=== PATIENT | male | born 1975 | race Caucasian/White ===

== ENCOUNTER 2019-04-22 10:10 | Emergency (ER) | payer SELFPAY ==
[~2019-04-22] VITALS: Ht 175.3 cm; Wt 90.0 kg
[~2019-04-22 10:10] MED LIST: CIPR-193 PO; ONDA4TAB8 PO
[2019-04-22 10:16] VITALS: Ht 175.3 cm; Wt 90.0 kg
--- NOTE | 2019-04-22 11:09 | ERD ---
ER Documentation Chief Complaint Chief Complaint DIARRHEA X 3 DAYS HPI Patient is a 43 years old male with PMHx of Hepatitis post treatment presenting to the ED for abdominal pain, fever, chills, headache, nausea, NBNB emesis, watery diarrhea x 3 days. Patient reports eating seafood buffet prior to onset of symptoms. Patient reports 9 bowel movements per day that is yellow in color with foul odor. ROS All systems reviewed and are negative except as per history of present illness. Medications Home Meds Active Scripts Ondansetron Hcl* (Zofran*) 4 Mg Tablet, 4 MG PO Q8H PRN for NAUSEA AND/OR VOMITING, #30 TAB Prov:MICHELLE NUÑEZ PA-C 04/22/19 Ciprofloxacin Hcl* (Ciprofloxacin Hcl*) 250 Mg Tablet, 250 MG PO BID for 3 Days, #6 TAB Prov:MICHELLE NUÑEZ PA-C 04/22/19 Allergies Allergies: Coded Allergies: No Known Allergy (Unverified , 04/22/19) PMhx/Soc History of Surgery: No Anesthesia Reaction: No Hx Neurological Disorder: No Hx Respiratory Disorders: No Hx Cardiac Disorders: No Hx Psychiatric Problems: No Hx Miscellaneous Medical Probl: No FmHx Family History: No diabetes, No coronary disease, No other Physical Exam Vitals Vital Signs Date Temp Pulse Resp B/P (MAP) Pulse Ox O2 O2 Flow FiO2 Time Delivery Rate 04/22/19 98.2 79 18 137/78 99 Room Air 13:30 (97) 04/22/19 98.1 96 18 153/92 99 10:16 (112) Physical Exam Const: No acute distress Head: Atraumatic Resp: Clear to auscultation bilaterally Cardio: Regular rate and rhythm, no murmurs Abd: Soft, distended. Hyperactive bowel sounds. Diffuse abdominal tenderness. Negative Valdes sign, Rovsing sign, Marl[place] sign, Decker Crane sign. Back: No midline or flank tenderness. Negative CVAT. Psych: Normal Mood and Affect Result Diagram: 04/22/19 1128 04/22/19 1210 Results 24 hrs Laboratory Tests Test 04/22/19 11:28 04/22/19 12:10 White Blood Count 12.0 10^3/ul Red Blood Count 5.52 10^6/ul Hemoglobin 16.1 g/dl Hematocrit 46.8 % Mean Corpuscular Volume 84.8 fl Mean Corpuscular Hemoglobin 29.2 pg Mean Corpuscular Hemoglobin Concent 34.4 g/dl Red Cell Distribution Width 12.8 % Platelet Count 291 10^3/UL Mean Platelet Volume 10.7 fl Immature Granulocytes % 0.800 % Neutrophils % 79.0 % Lymphocytes % 9.3 % Monocytes % 10.4 % Eosinophils % 0.1 % Basophils % 0.4 % Nucleated Red Blood Cells % 0.0 /100WBC Immature Granulocytes # 0.090 10^3/ul Neutrophils # 9.5 10^3/ul Lymphocytes # 1.1 10^3/ul Monocytes # 1.3 10^3/ul Eosinophils # 0.0 10^3/ul Basophils # 0.1 10^3/ul Nucleated Red Blood Cells # 0.0 10^3/ul Sodium Level 137 mmol/L Potassium Level 3.4 mmol/L Chloride Level 101 mmol/L Carbon Dioxide Level 27 mmol/L Anion Gap 9 Blood Urea Nitrogen 12 mg/dl Creatinine 0.82 mg/dl Est Glomerular Filtrat Rate mL/min > 60 mL/min Glucose Level 188 mg/dl Calcium Level 8.8 mg/dl Total Bilirubin 0.6 mg/dl Direct Bilirubin 0.00 mg/dl Indirect Bilirubin 0.6 mg/dl Aspartate Amino Transf (AST/SGOT) 32 IU/L Alanine Aminotransferase (ALT/SGPT) 35 IU/L Alkaline Phosphatase 67 IU/L Total Protein 6.9 g/dl Albumin 3.8 g/dl Globulin 3.10 g/dl Albumin/Globulin Ratio 1.22 Current Medications Medications Dose Sig/Nikki Start Time Status Last (Trade) Ordered Route PRN Stop Time Admin Dose Reason Admin Sodium 1,000 ml @ Q1H ONCE 04/22/19 DC 04/22/19 Chloride 1,000 mls/hr IV 11:30 04/22/19 11:28 12:29 Ondansetron 4 mg ONCE STAT 04/22/19 DC 04/22/19 HCl (Zofran IV 11:11 04/22/19 11:28 Inj) 11:13 Famotidine 20 mg ONCE ONCE 04/22/19 DC 04/22/19 (Pepcid Iv) IV 11:30 04/22/19 11:28 11:31 Procedures/MDM Patient seen and evaluated for possible diarrhea and abdominal pain. Patient was started on IV fluids, Zofran, Pepcid. CBC, CMP revealed mild leukocytosis otherwise unremarkable. Leukocytosis most likely due to mild bacterial gastroenteritis. No suspicion for sepsis, appendicitis, cholecystitis, pancreatitis, colitis. Patient stable and ready for discharge. Follow-up with PCP. Patient will be discharged with Cipro 250 mg X 3 days and Zofran. Departure Diagnosis: Primary Impression: Gastroenteritis Condition: Stable Patient Instructions: Food Poisoning Or Gastroenteritis (7Y-Adult) Referrals: [facility] Additional Instructions: Paciente aconseja volver a Departamento de urgencias inmediatamente para sntomas nuevos o que empeoran . Paciente aconseja posteriores con el PCP en 2-3 conti . Paciente verbaliza la comprehensin y est de acuerdo con el tratamiento y el curso de accin. Si el paciente no tiene ninguna de atencin primaria pueden seguir con [facility] [address] [place] [address] [facility] + [address] [address] MICHELLE NUÑEZ PA-C Apr 22, 2019 11:09
[2019-04-22] MEDS ORDERED: ONDANSETRON 4 MG INJ IV STA (11:11)
[2019-04-22] MEDS ORDERED: FAMOTIDINE 20 MG INJ IV ONE (11:30)
[2019-04-22] MEDS ORDERED: SOD CHLORIDE 0.9% 1,000 ML IV ONE (11:30)
[2019-04-22 13:30] VITALS: BP 137/78; PULSE 79; RESP 18
== END 2019-04-22 13:30 | disposition home or self-care (01) ==
LOC: EDBD 10:10 → FTE 10:10
DX: K52.9 Noninfective gastroenteritis and colitis, unspecified (principal)
CPT/HCPCS: 80053; 85025; 96361; 96374; 96375; 99284; J2405; J7030